=== PATIENT | female | born 1985 | race Caucasian/White ===

== ENCOUNTER → 2019-08-15 12:35 | Outpatient (CLI) | payer MEDICAID ==
[2016-03-23 06:54] VITALS: BMI 23.9
[~2019-08-15 12:35] MED LIST: AMBIEN5 MG PO; ATARAX 25 MG TA25 MG PO; BENTYL 20 MG TA20 MG PO; NEURONTIN 300300 MG PO; PEPCID40 MG PO; PHENERGAN25 M1 PO; PREDNISONE10 MG PO; PRILOSEC20 MG PO; PROVENTIL/2.5 MG/3 M NEB; PULMICORT FLEX90 MCG INH; QVAR8.7 GM INH; RECLIPSEN1 TAB PO; SPIRIVA18 MCG INH; SYMBICORT 16010.2 GM INH; XOLAIR150 MG/VIA; XOPENEX HFA15 GM INH; ZOMETA 4 M4 MG/100 M
== END | disposition home or self-care (01) ==
LOC: D.US 12:35
PROVIDERS: ATTEND Obstetrics & Gynecology
DX: Z80.3 Family history of malignant neoplasm of breast (principal); N64.4 Mastodynia

== ENCOUNTER → 2021-02-16 12:25 | Outpatient (CLI) | payer BC ==
[2020-12-17 17:43] VITALS: BMI 24.5
[~2021-02-16 12:25] MED LIST changes: +DILAUDID2 MG PO; +DULERA 100 MCG8.8 GM INH; +ISIBLOOM PO; +KENALOG 0.1 % 115 GM TOPICAL; +KLONOPIN1 MG PO; +OMEPRAZOLE40 MG PO; +ULTRAM50 MG PO; +XOLAIR IM; -XOLAIR150 MG/VIA
== END | disposition home or self-care (01) ==
LOC: D.CT 12:25
PROVIDERS: ATTEND Obstetrics & Gynecology
DX: R10.9 Unspecified abdominal pain (principal)

== ENCOUNTER 2021-05-24 00:52 | Observation (INO) | payer BC ==
[~2021-05-24] VITALS: Ht 160 cm; Wt 55.0 kg
[2021-05-24 01:10] VITALS: Ht 160 cm; Wt 55.0 kg
[2021-05-24 02:36] LABS: BASOPHILS 0.7 % (0-2); EOSINOPHILS 1.5 % (0-7); HEMOGLOBIN 13.2 g/dL (12-16); LYMPHOCYTES 19.7 % (15-50); MCH 31.2 pg (26.0-34.0); MCHC 33.1 g/dL (31.0-37.0); MCV 94.2 fL (80.0-100.0); MEAN PLATELET VOLUME 10.6 fL (7.4-10.4); MONOCYTES 8.8 % (2-11); NEUTROPHILS 69.3 % (40-80); PLATELET COUNT 245 10x3/uL (130-400); RBC 4.25 10x6/uL (4.00-5.40); RDW 13.2 % (11.5-14.5); WBC 9.8 10x3/uL (4.8-10.8)
[2021-05-24 02:44] LABS: CALC OSMOLALITY 277 mosm/kg (275-300); CALCIUM 8.7 mg/dL (8.5-10.1); CHLORIDE - SERUM 103 mmol/L (98-107); CREATININE - SERUM 0.9 mg/dL (0.6-1.3); GLUCOSE 104 mg/dL (74-106); POTASSIUM - SERUM 3.5 mmol/L (3.5-5.1); SODIUM 138 mmol/L (136-145); UREA NITROGEN 18 mg/dL (7-18); eGFR NON AFRICAN AMERICAN 75 mL/min (90-120)
[2021-05-24 02:51] LABS: ALBUMIN 3.9 g/dL (3.4-5.0); ALKALINE PHOSPHATASE 71 U/L (30-120); ALT (SGPT) 20 U/L (10-68); BILIRUBIN - TOTAL 0.39 mg/dL (0.2-1.3); PROTEIN - SERUM 6.8 g/dL (6.4-8.2)
[2021-05-24 06:48] LABS: APTT 30.8 SECONDS (22.8-39.4); INR 1.09 (0.85-1.17); PROTIME 13.1 SECONDS (11.6-15.0)
[2021-05-24 06:57] LABS: CKMB 0.3 U/L (0.0-3.6); CREATINE KINASE 56 UL (21-215); MAGNESIUM - SERUM 2.1 mg/dL (1.8-2.4); TROPONIN-I < 0.017 ng/mL (0.000-0.060)
[2021-05-24 20:00] VITALS: BP 112/70
[2021-05-24 20:02] LABS: BACTERIA FEW HPF (<MOD); BILIRUBIN NEGATIVE (NEGATIVE); KETONE NEGATIVE mg/dL (< 1+); NITRITE NEGATIVE (NEGATIVE); PH 6.5 (5.0-8.0); SQUAMOUS EPITHELIAL 2 HPF (0-4); UROBILINOGEN NORMAL mg/dL (< 2); WHITE CELLS - URINE 3 HPF (0-4)
[2021-05-24 22:00] VITALS: BP 115/71
[2021-05-25] VITALS: BP 99/50
[2021-05-25 01:30] VITALS: BP 103/67
[2021-05-25 04:14] VITALS: BP 104/59
[2021-05-25 05:52] LABS: BASOPHILS 0 % (0-2); EOSINOPHILS 0 % (0-7); HEMOGLOBIN 13.3 g/dL (12-16); LYMPHOCYTES 6.6 % (15-50); MCHC 33.2 g/dL (31.0-37.0); MCV 93.4 fL (80.0-100.0); MEAN PLATELET VOLUME 10.8 fL (7.4-10.4); NEUTROPHILS 91.4 % (40-80); PLATELET COUNT 257 10x3/uL (130-400); RBC 4.29 10x6/uL (4.00-5.40); RDW 13.5 % (11.5-14.5); WBC 10.6 10x3/uL (4.8-10.8)
[2021-05-25 06:20] LABS: ALBUMIN 3.5 g/dL (3.4-5.0); ALKALINE PHOSPHATASE 59 U/L (30-120); ALT (SGPT) 20 U/L (10-68); BILIRUBIN - TOTAL 0.54 mg/dL (0.2-1.3); CALC OSMOLALITY 284 mosm/kg (275-300); CALCIUM 8.5 mg/dL (8.5-10.1); CARBON DIOXIDE 26.6 mmol/L (21.0-32.0); CHLORIDE - SERUM 108 mmol/L (98-107); CREATININE - SERUM 0.7 mg/dL (0.6-1.3); GLUCOSE 121 mg/dL (74-106); MAGNESIUM - SERUM 2.3 mg/dL (1.8-2.4); POTASSIUM - SERUM 3.8 mmol/L (3.5-5.1); PROTEIN - SERUM 6.3 g/dL (6.4-8.2); SODIUM 142 mmol/L (136-145); UREA NITROGEN 14 mg/dL (7-18); eGFR NON AFRICAN AMERICAN > 90 mL/min (90-120)
[2021-05-25] MEDS ORDERED: MEDROL DOSE PACK4 MG PO (10:20)
[2021-05-25 11:30] VITALS: BP 139/67
== END 2021-05-25 11:03 | disposition home or self-care (01) ==
LOC: D.ER 00:52 → D.EDHOLD 04:06 → OBSVTIME 04:07 → D.EDHOLD 05-25 11:03
PROVIDERS: Family Medicine; ADMIT Family Medicine; ATTEND Family Medicine
DX: J45.901 Unspecified asthma with (acute) exacerbation (principal); K21.9 Gastro-esophageal reflux disease without esophagitis; M79.7 Fibromyalgia; F41.8 Other specified anxiety disorders; G47.00 Insomnia, unspecified